=== PATIENT | female | born 1985 | race Caucasian/White ===

== ENCOUNTER → 2016-10-18 | Outpatient (CLI) | payer BC ==
[2016-05-12 04:38] VITALS: BP 129/92
== END ==
LOC: LAB 08:21
PROVIDERS: ATTEND Obstetrics & Gynecology Reproductive Endocrinology
DX: Z32.00 Encounter for pregnancy test, result unknown (principal)
CPT/HCPCS: 36415; 82670; 84144; 84702

== ENCOUNTER → 2016-10-20 | Outpatient (CLI) | payer BC ==
[2016-05-12 04:38] VITALS: BP 129/92
== END ==
LOC: LAB 08:24
PROVIDERS: ATTEND Obstetrics & Gynecology Reproductive Endocrinology
DX: O09.00 Supervision of pregnancy with history of infertility, unspecified trimester (principal)
CPT/HCPCS: 36415; 84702

== ENCOUNTER 2017-08-16 06:25 | Emergency (ER) | payer BC ==
[2017-08-16 06:35] VITALS: BP 143/94; BMI 35.0
--- NOTE | 2017-08-16 06:51 | DR.GENAD ---
HPI - PCP Primary Care Physician: NFD - HPI Comment HPI Comment: WORSE THIS AM. EXPOSE TO THE FLU. - Complaint/Symptoms Chief Complaint Doctors Comments: HEADACHE, FEVER AND BODYACHES THAT STARTED LAST NIGHT. Chief Complaint:: FEVER., BODYACHES CHILLS GARC[facility]A ONSET 0200 Self Treatment fo Chief Complaint: NONE - Nurses notes reviewed Nurses Notes Review: Yes - Source History Provided: Patient - Mode of Arrival Mode of Arrival: Ambulatory - Timing Onset of Chief Complaint: 08/16/17 Came on: Suddenly - Duration Duration: Constant Duration: Hours - Severity Severity: Moderate PMH - PMH Past Medical History: No Past Surgical History: Yes Surgical History: Past Surgical History Comment: BREAST AUGMENTATION, - Family History History of Family Medical Conditions: Yes Family Medical History: Hypertension Family Medical History Comment: FATHER - Social History Does patient currently use any type of tobacco product: No Have you used tobacco products in the last 12 months: No Type of Tobacco Use: None Does any household member use tobacco: No Alcohol Use: Occasionally Do you use any recreational Drugs:: No Lives With: Spouse Lives Where: Home - infectious screening In the last 2 months have you had wt loss of >10#?: NO Have you had fever, night sweats or hemotysis?: No Have you traveled outside the country in the last 6 months?: No Isolation: Standard ROS - Review of Systems Constitutional: Chills, Fever, Weakness, Fatigue Eyes: negative: Eye Pain, Discharge ENTM: negative: Ear Pain, Nose Discharge, Nose Congestion, Throat Pain Respiratoy: negative: Productive Cough, Short of Breath, Wheezing, Hemoptysis Cardiovascular: No Symptoms Reported Gastrointestinal/Abdominal: No Symptoms Reported Genitourinary: No Symptoms Reported Neurological: Headache Musculoskeletal: Muscle Pain Integumentary: No Symptoms Reported Hematologic/Lymphatic: No Symptoms Reported Endocrine: No Symptoms Reported All Other Systems: Reviewed and Negative PE - Vital Signs Vitals: Temperature 99.4 F Pulse Rate 116 Respiratory Rate 16 Blood Pressure 143/94 O2 Sat by Pulse Oximetry 96 - General Limitations: No Limitations General Appearance: Alert - Head Head Exam: Normal Inspection - Eyes Eye exam: Normal Appearance - ENT ENT Exam: Normal External Ear Exam External Ear Exam: Normal External Inspection TM/Canal Exam: Bilateral Bulging Nose Exam: Normal Nose Exam Mouth Exam: Normal Inspection Throat Exam: Tonsillar Erythema. negative: Tonsillomegaly, Tonsillar Exudate - Neck Neck Exam: Trachea Midline - Chest Chest Inspection: Symmetric Chest Wall Rise - Respiratory Respiratory Exam: Normal Lung Sounds Bilat Respiratory Exam: Bilateral Clear to Auscultation - Cardiovascular Cardiovascular Exam: Regular Rate, Normal Rhythm, Normal Heart Sounds - Abdominal Exam Abdominal Exam: Normal Bowel Sounds, Soft. negative: Tenderness - Extremities Extremities Exam: Normal Inspection - Back Back Exam: Normal Inspection - Neurologic Neurological Exam: Alert, Oriented X3 - Psychiatric Psychiatric Exam: Normal Affect, Normal Mood - Skin Skin Exam: Normal Color MDM - Additional Information Additional Information Obtained From: Family (HEADACHE, INFLUENZA, PHARYNGITIS, STREP THROAT) Course - Treatment Treatment: SEE ORDERS. - Education/Counseling Education/Counseling: Patient, Family, Education Educated On: Treatment, Diagnosis, Needs for Follow Up ROR - Labs Reviewed Laboratory Results Reviewed?: Yes Laboratory: Influenza Type A (PCR) Negative (NEGATIVE) 08/16/17 06:42 Influenza Type B (PCR) Negative (NEGATIVE) 08/16/17 06:42 S. pyogenes (TEM-PCR) Not detected (NOT DETECT) 08/16/17 06:51 - Diagnosis Discharge Problem: Sinus headache Sinusitis Qualifiers: Sinusitis location: unspecified location Chronicity: acute Recurrence: not specified as recurrent Qualified Code(s): J01.90 - Acute sinusitis, unspecified - Discharge Plan Disposition: 01 HOME, SELF-CARE Condition: Stable Prescriptions: Amoxicillin [Amoxil 875 mg] 875 mg PO Q12H #20 tab Cetirizine HCl [Zyrtec Tab 10 mg] 10 mg PO DAILY #30 tab Ibuprofen [MOTRIN TAB 600 MG *] 600 mg PO TID PRN #30 tab PRN Reason: Pain/Inflammation - Follow ups/Referrals Follow ups/Referrals: NFD,None [Primary Care Provider] - 3 days - Instructions Instructions: Sinusitis, Adult, [id number], Sinus Headache, [id number] Additional Instructions: RETURN TO ED IF WORSE.
== END 2017-08-16 08:03 | disposition home or self-care (01) ==
LOC: ER 06:25
DX: J01.80 Other acute sinusitis (principal); R51 Headache
CPT/HCPCS: 87502; 87651; 99282; 99283

== ENCOUNTER → 2017-11-23 | Outpatient (CLI) | payer BC | LOC: LAB 08:33 | PROVIDERS: ATTEND Obstetrics & Gynecology Reproductive Endocrinology | DX: Z32.00 Encounter for pregnancy test, result unknown (principal) | CPT/HCPCS: 36415; 82670; 84144; 84702 ==